=== PATIENT | female | born 1940 | race Caucasian/White ===

== ENCOUNTER 2022-02-24 20:04 | Inpatient (IN) | payer OTHER ==
[~2022-02-24] VITALS: Ht 144.8 cm; Wt 81.2 kg
[2022-02-24 20:16] VITALS: BP_SYST 158
--- NOTE | 2022-02-24 20:21 | NUR ---
PT HERE BIB DAUGHTER C/O ALOC. PER DAUGHTER PT FELL LAST AND EARLIER THIS MORNING SHE WAS FOUND ON THE FLOOR. PMH:PARKINSONS, HYPOTENSION. PT AWAKE, ALERT AND ORIENTED TO HER NAME. PLACED ON MONITORS, REPORT GIVEN TO RYAN. PENDING MD BERRY
--- NOTE | 2022-02-24 20:25 | NUR ---
RAAD Monsalve at bedside.
--- NOTE | 2022-02-24 20:40 | NUR ---
Lab at bedside
--- NOTE | 2022-02-24 21:03 | NUR ---
Patient taken to xray via gurney accompained by radiology.
[2022-02-24 21:08] LABS: BASOPHILS % (AUTO) 0.8 % (0.0-2.0); EOSINOPHILS # (AUTO) 0.1 K/uL (0.0-0.4); HEMATOCRIT 38.5 % (36-48); HEMOGLOBIN 13.1 g/dL (12.0-16.0); LYMPHOCYTES # (AUTO) 1.1 K/uL (1.0-5.5); LYMPHOCYTES % (AUTO) 18.8 % (20.5-51.5); MEAN CORPUSCULAR HEMOGLOBIN 30 pg (27-31); MEAN CORPUSCULAR HGB CONC 34 % (32-36); MEAN CORPUSCULAR VOLUME 89 fL (79.0-98.0); MONOCYTES # (AUTO) 0.5 K/uL (0.0-1.0); MONOCYTES % (AUTO) 7.7 % (1.7-9.3); NEUTROPHILS # (AUTO) 4.3 K/uL (1.8-7.7); NEUTROPHILS % (AUTO) 70.7 % (40.0-70.0); PLATELET COUNT (AUTO) 176 K/uL (130-430); RED BLOOD CELL COUNT(AUTO) 4.32 MIL/uL (4.2-6.2); RED CELL DISTRIBUTION WIDTH 15.7 % (9.0-15.0)
[2022-02-24 21:15] LABS: ANION GAP 4 (5-15); CHLORIDE 109 mmol/L (98-107); CREATININE 1.13 mg/dL (0.55-1.30); GLUCOSE 86 mg/dL (70-99); UREA NITROGEN, BLOOD 16 mg/dL (8-21)
[2022-02-24 21:20] LABS: PROTHROMBIN TIME 10.1 SECS (9.5-12.5)
[2022-02-24 21:20] LABS: BILIRUBIN,URINE NEGATIVE (NEGATIVE); BLOOD, URINE 2+ (NEGATIVE); COLOR,URINE YELLOW (YELLOW); GLUCOSE,URINE NEGATIVE (NEGATIVE); KETONES,URINE NEGATIVE (NEGATIVE); NITRITE, URINE NEGATIVE (NEGATIVE); PH,URINE 7.5 (5.0-8.0); PROTEIN URINE NEGATIVE (NEGATIVE); UROBILINOGEN,URINE 0.2 (0.2-1.0)
[2022-02-24 21:29] LABS: ACETAMINOPHEN < 1 ug/mL (1-30); ALANINE AMINOTRANSFERASE 9 U/L (12-78); ALBUMIN 3.4 g/dL (3.4-4.8); ALCOHOL, BLOOD < 3 mg/dL (<10); ASPARTATE AMINOTRANSFERASE 25 U/L (10-37); C-REACTIVE PROTEIN QUANT < 0.2 mg/dL (0-0.5); TOTAL BILIRUBIN 0.6 mg/dL (0.0-1.0)
[2022-02-24 21:30] LABS: BARBITURATE, URINE NEGATIVE (NEG <=200); BENZODIAZEPINE, URINE NEGATIVE (NEG <=150); CANNABINOID, URINE NEGATIVE (NEG <=50); COCAINE, URINE NEGATIVE (NEG <=150); METHAMPHETAMINES SCREEN,URINE NEGATIVE (NEG <=500); OPIATE, URINE NEGATIVE (NEG <=100); PHENCYCLIDINE SCREEN,URINE NEGATIVE (NEG <=25); UR TRICYCLIC ANTIDEPRESSANTS NEGATIVE (NEG <=300); URINE AMPHETAMINE NEGATIVE (NEG <=500); URINE METHADONE NEGATIVE (NEG <=200); URINE OXYCODONE SCREEN NEGATIVE (NEG <=100); URINE PROPOXYPHENE SCREEN NEGATIVE (NEG <=300)
[2022-02-24 21:31] LABS: CLARITY/URINE HAZY (CLEAR); LEUKOCYTE ESTERASE ,URINE 1+ (NEGATIVE)
[2022-02-24 21:32] LABS: BACTERIA,URINE FEW /HPF (None Seen); MUCUS,URINE None Seen /LPF (None Seen); RBC,URINE 0-3 /HPF (0-3)
[2022-02-24 21:44] LABS: ACETONE, SERUM NEGATIVE (NEGATIVE)
--- NOTE | 2022-02-24 22:01 | NUR ---
Admit bed requested Patient will be admitted to care of Admitted to [facility] unit. Diagnosis s/p Fall Inpatient (Yes or No) yes Observation (Yes or No) no Orientation concerns or request close to nursing station (Yes or No) yes Covid Status pending On vent or bipap no Isolation requirements no Needs a sitter no From Home (Yes or if No enter name of facility) yes Requires Dialysis (Yes or No) no Med Rec Completed (Yes of No) yes
--- NOTE | 2022-02-24 22:01 | NUR ---
Juan Jose moramery in [facility] - 02/24/22 at 2201 by [email or web address] AD
--- NOTE | 2022-02-24 22:38 | NUR ---
COVID-19 SWAB SENT TO LAB.
[2022-02-24] MEDS ORDERED: OXYB5TAB16 PO (22:46)
[2022-02-24] MEDS ORDERED: MIDO2.5T PO (22:47)
[2022-02-24] MEDS ORDERED: MIRT-91 PO (22:47)
[2022-02-24] MEDS ORDERED: DONE10TA44 PO (22:48)
[2022-02-24] MEDS ORDERED: LIP20 PO (22:49)
[2022-02-24] MEDS ORDERED: CARB1TAB33 PO (22:49)
--- NOTE | 2022-02-24 22:50 | NUR ---
Medication reconciliation completed with information provided by patient. Any prior medication reconciliation on file was reviewed and corrected.
--- NOTE | 2022-02-24 23:15 | NUR ---
# 22 gauge angiocath placed to RIGHT AC. Use of asceptic technique. Opsite placed over site. Blood return noted. Flushed with 10 cc of normal saline. No evidence of infiltration noted. Patient tolerated well.
[2022-02-24] MEDS: 0.45% NACL 1,000 ML IV SCH (23:47)
--- NOTE | 2022-02-25 00:18 | NUR ---
Patient sleeping in bed with side rails raised. Patient's daughter at bedside. Nad noted at this time.
[2022-02-25 01:50] VITALS: BP_SYST 166
--- NOTE | 2022-02-25 01:50 | NUR ---
Patient's daughter left phone number for nursing staff to call her in AM. Daughter's information given to med surg nurse and noted on chart. Daughter is Judy Gottlieb [phone]
--- NOTE | 2022-02-25 02:00 | NUR ---
Patient will be admitted to care of DR CEBALLOS. Admitted to MED SURG unit. Will go to room 105A. Belongings list completed. Complete and up to date summary report printed. SBAR report given to MARY Ramos at bedside with opportunity for questions.
[2022-02-25 06:54] LABS: BASOPHILS % (AUTO) 0.3 % (0.0-2.0); EOSINOPHILS # (AUTO) 0.1 K/uL (0.0-0.4); EOSINOPHILS % (AUTO) 2.4 % (0.0-4.0); HEMATOCRIT 31.4 % (36-48); LYMPHOCYTES % (AUTO) 21.1 % (20.5-51.5); MEAN CORPUSCULAR HEMOGLOBIN 31 pg (27-31); MEAN CORPUSCULAR HGB CONC 35 % (32-36); MEAN CORPUSCULAR VOLUME 87 fL (79.0-98.0); MONOCYTES # (AUTO) 0.5 K/uL (0.0-1.0); MONOCYTES % (AUTO) 10.1 % (1.7-9.3); NEUTROPHILS % (AUTO) 66.1 % (40.0-70.0); PLATELET COUNT (AUTO) 151 K/uL (130-430); WHITE BLOOD COUNT (AUTO) 4.5 K/uL (4.8-10.8)
[2022-02-25 07:44] LABS: ALANINE AMINOTRANSFERASE 9 U/L (12-78); ALBUMIN 2.7 g/dL (3.4-4.8); ANION GAP 4 (5-15); ASPARTATE AMINOTRANSFERASE 21 U/L (10-37); CALCIUM 9.1 mg/dL (8.4-11.0); CHLORIDE 112 mmol/L (98-107); CREATININE 0.87 mg/dL (0.55-1.30); GLUCOSE 77 mg/dL (70-99); TOTAL BILIRUBIN 0.6 mg/dL (0.0-1.0); UREA NITROGEN, BLOOD 15 mg/dL (8-21)
[2022-02-25 08:00] VITALS: BP_SYST 96
[2022-02-25 11:34] VITALS: BP_SYST 151
[2022-02-25] MEDS: 0.45% NACL 1,000 ML IV SCH (11:37)
[2022-02-25 15:30] VITALS: BP_SYST 144
[2022-02-25] MEDS ORDERED: ATORVASTATIN 20 MG TABLET PO ONE (18:30)
[2022-02-25] MEDS ORDERED: DONEPEZIL HCL 5 MG TABLET (ARICEPT) PO ONE (18:30)
[2022-02-25] MEDS ORDERED: CARBIDOPA/LEVODOPA 25/100 MG TABLET PO ONE ×3 (19:00→23:00)
[2022-02-25] MEDS ORDERED: POTASSIUM CHLORIDE 20 MEQ TAB.PRT.SR PO ONE (19:45)
[2022-02-25] MEDS ORDERED: CARBIDOPA/LEVODOPA 25/100 MG TABLET PO SCH (21:00)
--- NOTE | 2022-02-25 21:55 | NUR ---
Pt family asking for earlier administration of sinnemet due to not receiving normal dosage earlier pt family states its been due a long time ago notified dr. chan asked if okay to give now dr. chan orders okay to give one dose now
[2022-02-25] MEDS: MIRTAZAPINE 15 MG TABLET PO SCH (21:58)
[2022-02-25] MEDS: MIDODRINE HCL 5 MG TABLET (PROAMATINE) PO SCH (21:59)
[2022-02-25] MEDS: OXYBUTYNIN CHLORIDE 5 MG TABLET PO SCH (21:59)
[2022-02-26] MEDS: 0.45% NACL 1,000 ML IV SCH ×2 (00:23→14:00)
[2022-02-26] MEDS ORDERED: CARBIDOPA/LEVODOPA 25/100 MG TABLET PO ONE (03:00)
--- NOTE | 2022-02-26 07:30 | NUR ---
OPENING NOTE PT IN BED, RESTING IN BED WITH EVEN AND NON-LABORED BREATHING. IV RUNNING ORDERED. IV SITE REMAIN PATENT AND INTACT. NO S/S OF INFILTRATION OR INFECTION NOTED. FC DRAINING BY GRAVITY. BED IS LOCKED AND AT LOW POSITION. ENCOURAGED TO USE CALL LIGHT FOR ASSISTANCE. WILL CONTINUE TO MONITOR
[2022-02-26] MEDS: ATORVASTATIN 20 MG TABLET PO SCH (08:45)
[2022-02-26] MEDS: DONEPEZIL HCL 5 MG TABLET (ARICEPT) PO SCH (08:46)
[2022-02-26] MEDS: OXYBUTYNIN CHLORIDE 5 MG TABLET PO SCH ×2 (08:46→20:24)
[2022-02-26] MEDS: MIDODRINE HCL 5 MG TABLET (PROAMATINE) PO SCH ×2 (08:47→20:24)
[2022-02-26] MEDS ORDERED: CARBIDOPA/LEVODOPA 25/100 MG TABLET PO SCH ×2 (09:00→12:40)
--- NOTE | 2022-02-26 10:00 | NUR ---
NOTES ADDED DRUG ALLERGY. PT VERBALIZES SHE IS ALLERGIC TO CODEINE-RASH. UPDATED ACCORDINGLY.
--- NOTE | 2022-02-26 11:00 | NUR ---
NOTES; DTR AT BEDSIDE, ANSWERED ALL QUESTIONS.
--- NOTE | 2022-02-26 12:03 | NUR ---
RECOMMEND FWW FOR HOME USE DUE TO HER HAVING UNSTEADY STADING BALANCE DURING GAIT AND TRANSFERS. USING A 4WW IS UNSAFE AT THIS TIME.
[2022-02-26] MEDS: CARBIDOPA/LEVODOPA 25/100 MG TABLET PO SCH ×2 (13:17→17:56)
[2022-02-26] MEDS ORDERED: POTASSIUM CHLORIDE 20 MEQ TAB.PRT.SR PO ONE (13:30)
[2022-02-26 13:51] LABS: ANION GAP 3 (5-15); CALCIUM 9.3 mg/dL (8.4-11.0); CHLORIDE 109 mmol/L (98-107); CREATININE 0.95 mg/dL (0.55-1.30); GLUCOSE 110 mg/dL (70-99); UREA NITROGEN, BLOOD 16 mg/dL (8-21)
--- NOTE | 2022-02-26 14:00 | NUR ---
NOTES PROVIDED BEDPAN FOR BOWEL MOVEMENT. PERFORMED MANUALLY DISIMPACT STOOL. ENCOURAGED PT TO DRINK MORE P.O LIQUID TOLERATED. PT DENIES ANY OR DISCOMFORT. DTR AT BEDSIDE ASSISTING THIS NURSE. WILL CONTINUE TO MONITOR.
--- NOTE | 2022-02-26 14:43 | NUR ---
Machining Manager HEEL BUILDER MACHINE responded to a referral from Dr. Logan to see pt. HEEL BUILDER MACHINE introduced self to pt who stated her nephew and daughter, Judy are having a meeting tonight to make a plan for her care. Pt. was sad stating Dr. logan wants to send her to an assisted living to go and . HEEL BUILDER MACHINE assured her that was not the case and it was positive to have family involved to try to come up with a solution. Pt. stated she wants to go home and have a family member assist her. HEEL BUILDER MACHINE thanked her for her input.
--- NOTE | 2022-02-26 15:30 | NUR ---
NEW PIV INITIATED; PREVIOUS IV CATHETER OUT. NO ACTIVE BLEEDING NOTED. NO S/S INFECTION OR INFILTRATION. COVERED THE AREA WITH DRY GAUZE AND TAPE. INITIATED NEW PIV TO RIGHT ARM BY USING ASEPTIC TECHNIQUE. FLUSHED WITH 10CC NS, GOOD BLOOD RETURN NOTED. PT DENIES ANY PAIN AT THE SITE. COVERED WITH TRANSPARENT DRESSING. PT TOLERATED PROCEDURE WELL. WILL CONTINUE TO MONITOR.
[2022-02-26 16:00] VITALS: BP_SYST 144
--- NOTE | 2022-02-26 16:53 | NUR ---
CONSULT NEUROLOGY [facility]IN[facility] SPARKLE DECKER SENT A TEXT MESSAGE TO DR ALFRED
--- NOTE | 2022-02-26 17:37 | NUR ---
CAROL PERRIN FOR CLARIFICATION OF DC ORDER. FAMILY DOES NOT WANT TO SENT PT HOME WITH PENDING PTH RESULT. CHARGE NURSE SPOKE WITH FAMILY MEMBER. Addendum: 02/26/22 at 1836 by Kane Ambriz RN WRONG PATIENT
--- NOTE | 2022-02-26 18:05 | NUR ---
ROUNDING AT BEDSIDE, ASSESSING PT
--- NOTE | 2022-02-26 19:15 | NUR ---
CLOSING NOTE PT IN BED WITH FAMILY. RESPIRATIONS EVEN AND NON-LABORED. DENIES ANY ACUTE DISTRESS, CHEST PAIN, OR SHORTNESS OF BREATH. BACON CATHETER DRAINING BY GRAVITY. IV RUNNING ORDERED WITH SITE REMAIN PATENT AND INTACT. NO IV RELATED COMPLICATION NOTED. BED IS LOCKED AND AT LOW POSITION. SAFETY PRECAUTION IN PLACED. ENCOURAGED TO USE CALL LIGHT FOR ASSISTANCE. ENDORSED CARE
--- NOTE | 2022-02-26 19:20 | NUR ---
OPENING NOTE REPORT RECEIVED FROM DAYSHIFT NURSE. PATIENT RECEIVED LYING IN BED, AOX1, NO S/S OF ACUTE DISTRESS, DENIES PAIN. BREATHING EVEN AND UNLABORED. IVF INFUSING WELL, IV SITE PATENT, NO SIGNS OF INFILTRATION OR INFECTION NOTED. BACON ATTACHED, SECURED, AND DRAINING BY GRAVITY. CALL LIGHT WITH PATIENT. BED ALARM ON. FAMILY AT BEDSIDE. BED IS LOCKED AND AT LOWEST POSITION. WILL CONTINUE TO MONITOR.
[2022-02-26 20:00] VITALS: BP_SYST 124
[2022-02-26] MEDS: MIRTAZAPINE 15 MG TABLET PO SCH (20:24)
[2022-02-26] MEDS ORDERED: TEMAZEPAM 7.5 MG CAPSULE PO PRN (21:45)
--- NOTE | 2022-02-26 23:00 | NUR ---
ROUNDS PATIENT IN BED, RESTING. NO SIGNS OF DISCOMFORT NOTED. CALL LIGHT WITH PATIENT. BED ALARM ON. WILL CONTINUE TO MONITOR.
[2022-02-27] VITALS: BP_SYST 132
--- NOTE | 2022-02-27 03:00 | NUR ---
PERICARE CLEANED AT THIS TIME. PATIENT TOLERATED WELL. ALL NEEDS MET. WILL MONITOR
[2022-02-27] MEDS: 0.45% NACL 1,000 ML IV SCH ×2 (05:21→16:40)
--- NOTE | 2022-02-27 06:16 | NUR ---
CLOSING NOTE PATIENT IN BED RESTING AT THIS TIME. NO S/S OF ACUTE DISTRESS. BREATHING EVEN AND UNLABORED. HOB RAISED. IVF INFUSING WELL, IV SITE PATENT, NO SIGNS OF INFILTRATION OR INFECTION NOTED. BACON ATTACHED, SECURED, AND DRAINING BY GRAVITY. ALL NEEDS MET THROUGHOUT SHIFT. FALL, SAFETY PRECAUTIONS MAINTAINED THROUGHOUT SHIFT. WILL CONTINUE TO MONITOR UNTIL PATIENT CARE IS ENDORSED TO ONCOMING DAYSHIFT NURSE.
[2022-02-27] MEDS: MIDODRINE HCL 5 MG TABLET (PROAMATINE) PO SCH (09:00)
[2022-02-27] MEDS: ATORVASTATIN 20 MG TABLET PO SCH (09:14)
[2022-02-27] MEDS: OXYBUTYNIN CHLORIDE 5 MG TABLET PO SCH (09:14)
[2022-02-27] MEDS: CARBIDOPA/LEVODOPA 25/100 MG TABLET PO SCH ×3 (09:15→18:11)
[2022-02-27] MEDS: DONEPEZIL HCL 5 MG TABLET (ARICEPT) PO SCH (09:15)
[2022-02-27 12:28] LABS: EOSINOPHILS # (AUTO) 0.1 K/uL (0.0-0.4); MONOCYTES # (AUTO) 0.5 K/uL (0.0-1.0); MONOCYTES % (AUTO) 7.3 % (1.7-9.3)
[2022-02-27 12:39] LABS: BASOPHILS % (AUTO) 0.4 % (0.0-2.0); EOSINOPHILS % (AUTO) 1.4 % (0.0-4.0); HEMATOCRIT 39.7 % (36-48); HEMOGLOBIN 13.2 g/dL (12.0-16.0); LYMPHOCYTES % (AUTO) 13.6 % (20.5-51.5); MEAN CORPUSCULAR HEMOGLOBIN 30 pg (27-31); MEAN CORPUSCULAR HGB CONC 33 % (32-36); MEAN CORPUSCULAR VOLUME 89 fL (79.0-98.0); NEUTROPHILS # (AUTO) 5.4 K/uL (1.8-7.7); NEUTROPHILS % (AUTO) 77.3 % (40.0-70.0); PLATELET COUNT (AUTO) 188 K/uL (130-430); RED BLOOD CELL COUNT(AUTO) 4.45 MIL/uL (4.2-6.2)
[2022-02-27 12:42] VITALS: BP_SYST 128
--- NOTE | 2022-02-27 13:08 | NUR ---
[facility]/HCP CM MS SHRESTHA WAS CALLED TO REMIND HER TO ARRANGE HOME HEALTH.
[2022-02-27 16:26] VITALS: BP_SYST 130
[2022-02-27 16:47] VITALS: BP_SYST 143
--- NOTE | 2022-02-28 07:21 | NUR ---
PHYSICAL THERAPY CO-SIGN The Physical Therapy Progress Notes documented by Historiography Teacher have been reviewed. Reviewed/Co-Signed by: Matthias Carrasquillo Documentation Done by: TYRONE ALMANZAR PTA Addendum: 02/28/22 at 0722 by Matthias Carrasquillo PT Amended: Links added.
== END 2022-02-27 18:40 | disposition home or self-care (01) | DRG 57 ==
LOC: SED 20:04 → SMU 21:57
PROVIDERS: ADMIT Internal Medicine; ATTEND Internal Medicine
DX: G20 Parkinson's disease (principal); F02.80 Dementia in other diseases classified elsewhere, unspecified severity, without behavioral disturbance, psychotic disturbance, mood disturbance, and anxiety; R32 Unspecified urinary incontinence; E78.00 Pure hypercholesterolemia, unspecified; F32.A Depression, unspecified; Z20.822 Contact with and (suspected) exposure to COVID-19
CPT/HCPCS: 36415; 70450-TC; 71045; 73552; 76376; 80048; 80053; 80307; 81000; 82009; 82140; 82550; 83605; 83735; 83880; 84484; 85025; 85610-TC; 85730-TC; 86140; 87086; 93005; 97110-GP; 97116-GP; 97530-GP; 99285; G0480; G0481; G0482; J7050